=== PATIENT | female | born 1995 | race Two or more races ===

== ENCOUNTER 2019-07-07 17:41 | Emergency (ER) | payer OTHER ==
[~2019-07-07] VITALS: Ht 162.6 cm; Wt 65.8 kg
[2019-07-07 17:48] VITALS: BP 131/76
[2019-07-07] MEDS ORDERED: TETRAHYDROZOLINE HCL 0.05% OPTH(EYE)SOL OP ONE (18:30)
[2019-07-07] MEDS ORDERED: OPHTHALMIC IRRIGATION SOLN 30ML OP ONE (18:30)
[2019-07-07] MEDS ORDERED: FLUORESCEIN SOD 1 MG TEST STRIP OP ONE (18:30)
[2019-07-07] MEDS ORDERED: KETOROLAC TROMETH 60MG/2ML VIAL IM ONE (18:30)
[2019-07-07] MEDS ORDERED: TETRACAINE HCL 0.5% OPTH(EYE) SOLN 4ML LEFTEYE ONE (18:45)
== END 2019-07-07 19:12 | disposition home or self-care (01) ==
LOC: ER 17:41
DX: S00.252A Superficial foreign body of left eyelid and periocular area, initial encounter (principal); X58.XXXA Exposure to other specified factors, initial encounter; Y93.89 Activity, other specified; Y92.89 Other specified places as the place of occurrence of the external cause; Y99.8 Other external cause status
CPT/HCPCS: 99283; J1885

== ENCOUNTER 2022-03-02 12:44 | Emergency (ER) | payer OTHER ==
[~2022-03-02] VITALS: Ht 165.1 cm; Wt 68.1 kg
[2022-03-02] MEDS ORDERED: ACETAMINOPHEN 500 MG TAB PO ONE (14:15)
[2022-03-02 17:19] VITALS: BP 125/79
== END 2022-03-02 17:20 | disposition home or self-care (01) ==
LOC: ER 12:44
DX: S43.402A Unspecified sprain of left shoulder joint, initial encounter (principal); S50.02XA Contusion of left elbow, initial encounter; W18.00XA Striking against unspecified object with subsequent fall, initial encounter; Y93.89 Activity, other specified; Y92.89 Other specified places as the place of occurrence of the external cause; Y99.8 Other external cause status
CPT/HCPCS: 73030; 73080

== ENCOUNTER 2023-08-13 16:18 | Emergency (ER) | payer OTHER ==
[~2023-08-13] VITALS: Ht 162.6 cm; Wt 70.4 kg
[2023-08-13 16:51] VITALS: TEMP 98.7
[2023-08-13 16:54] VITALS: BP 118/75; PULSE 91; RESP 18; O2SAT 98
[2023-08-13] MEDS: IBUPROFEN 800 MG TAB PO ONE (17:30)
== END 2023-08-13 17:54 | disposition home or self-care (01) ==
LOC: ER 16:18
DX: S63.617A Unspecified sprain of left little finger, initial encounter (principal); S50.12XA Contusion of left forearm, initial encounter; S80.01XA Contusion of right knee, initial encounter; Y04.0XXA Assault by unarmed brawl or fight, initial encounter; Y93.89 Activity, other specified; Y92.148 Other place in prison as the place of occurrence of the external cause; Y99.8 Other external cause status
CPT/HCPCS: 29130; 73130